=== PATIENT | male | born 1990 | race Caucasian/White ===

== ENCOUNTER 2017-07-21 16:12 | Emergency (ER) | payer SELFPAY ==
[~2017-07-21] VITALS: Ht 177.8 cm; Wt 81.6 kg
[2017-07-21] MEDS ORDERED: ACETAMINOPHEN 325 MG TAB PO ONE (16:21)
[2017-07-21 16:38] VITALS: BP 135/86
== END 2017-07-21 21:00 | disposition left against medical advice (07) ==
LOC: ER 16:19
DX: R53.1 Weakness (principal); R11.2 Nausea with vomiting, unspecified